=== PATIENT | male | born 1980 | race Two or more races ===

== ENCOUNTER 2025-01-10 23:49 | Emergency (ER) | payer MEDICAID, SELFPAY ==
--- NOTE | 2025-01-11 | EDNOTE_ITS ---
ED Wound/Laceration-RME/HPI General Chief Complaint: Wound Recheck / Suture Removal Stated Complaint: RE CHECK INCISION AT LEFT FLANK AREA Time Seen by Provider: 01/11/25 00:00 Arrival date/time: 01/10/25 23:49 RME / HPI RME / HPI narrative: This section includes all my notes and documentations, including HPI, PE, and ED course. Tim Headley MD HPI: 44yo male with a history of epidermoid cyst s/p resection 2 weeks ago at [place] presents to the ED for a chief complaint of wound check. Patient's family at bedside states the patient had his epidermoid cyst resected 2 weeks ago, along with another procedure at his left flank area (does not know what). He states he has been on antibiotics for the last three days, reporting he has since developed redness and pus-like drainage to the left flank area, so he came in for evaluation. He denies any fever, chills or any other associated symptoms. No other complaints reported. ROS: All negative except as documented in HPI. Physical Exam: General: Alert and oriented. No acute distress when remaining still. Eyes: Conjunctivae and lids clear. ENT: No nasal congestion. Neck: Supple. Heart: RRR. Lungs: No respiratory distress. Good air movement. No rhonchi, wheezing, rales. Abdomen: Soft and nontender. Legs: No clubbing, cyanosis, edema. Skin: Warm and dry. Apple-sized area of erythema and edema to the left flank area. Neuro: Alert and oriented X 3. I reviewed all diagnostic test results. My review of the CT report is no intra-abdominal acute findings. Blood tests unremarkable. At this point, diagnoses include cellulitis. Treatment here included Unasyn. Recommended a trial of outpatient treatment. Based on my best medical judgment, made decision no further evaluation or treatment indicated at this time. Patient understands and agrees to the discharge instructions customized and printed, see below. Discharge Instructions from Dr. Headley printed for you: 1. After evaluation, you have cellulitis (infection of the skin and soft tissues). There is no serious infection in the abdomen. 2. Take Augmentin to kill the germs causing the infection. 3. See a private doctor on 01/15/2025 for recheck and further care. Ask for help until you are completely better. 4. Seek immediate medical care with fever, spreading redness despite taking Augmentin for 24 hours, or with any concerns. Tim Headley MD Related Data Previous Rx's ?Medication ?Instructions ?Recorded amoxicillin 875 mg-potassium 1 tab PO BID #28 tabs clavulanate 125 mg tablet Allergies Allergy/AdvReac Type Severity Reaction Status Date / Time No Known Allergies Allergy Verified 01/10/25 23:51 Review of Systems Review of Systems Systems Reviewed: All systems reviewed, normal except as documented Past Medical History Social History SMOKING STATUS: Never smoker ED Exam Narrative Physical exam: As noted in HPI. Course Quality Measures none Orders Category Date Time Status CT Screening NOW Care 01/11/25 00:01 Active Saline [Insert IV] NOW Care 01/11/25 00:[address] abdomen pelvis w con Stat Exams 01/11/25 00:01 Taken CBC Stat Lab 01/11/25 00:23 Completed CMP [Comprehensive Metabolic Panel] Stat Lab 01/11/25 00:23 Completed CRP [C-Reactive Protein] Stat Lab 01/11/25 00:23 Completed ESR [Sed Rate (ESR)] Stat Lab 01/11/25 00:23 Completed Lactate (Lactic Acid) Stat Lab 01/11/25 00:23 Completed Magnesium Stat Lab 01/11/25 00:23 Completed Procalcitonin Stat Lab 01/11/25 00:23 Completed Ampicillin/Sulbac Inj [Unasyn Inj] 3 gm Med 01/11/25 00:38 Discontinued Sodium Chloride 0.9% (P) [Ns 0.9% (P)] 50 ml IV X1 Vital Signs Vital signs: Vital Signs Temperature 99.3 F 01/11/25 00:04 Pulse Rate 100 01/11/25 00:04 Respiratory Rate 18 01/11/25 00:04 Blood Pressure 130/82 01/11/25 00:04 Pulse Oximetry (%) 97 01/11/25 00:04 Oxygen Delivery Method Room Air 01/11/25 00:04 Wound / Laceration MDM Narrative MDM Narrative:: Scribe Attestation: 01/11/25 - Melva Eli am scribing for and in the presence of Dr. Headley. Patient data External records reviewed:: [facility] previous records (Per chart review, patient has no relevant previous ED visits or admissions to this facility.) Clinical information provided by:: patient Social determinants that could affect healthcare access:: none Patient has the following chronic illnesses:: epidermoid cyst s/p resection 2 weeks ago How is presenting disease/condition affected by chronic disease/condition?: uneffected by Evaluation data The following diagnostics were reviewed and interpreted by me:: lab results and radiology exam(s) Lab and/or radiology exams considered but not ordered:: none Interpretation Summary: Abdominal wall cellulitis Medications / Prescriptions Medications or Prescriptions considered but not ordered:: none Medication administrations:: Medication Administration History Discontinued Medications Ampicillin Sodium/Sulbactam (Sodium 3 gm/ Sodium Chloride) 50 mls @ 100 mls/hr IV X1 ONE Stop: 01/11/25 00:39 Last Infusion: 01/11/25 01:35 Dose: Infused Documented By: Admin: 01/11/25 01:04 Dose: 100 mls/hr Documented By: ZARI Unasyn Consultations Consultation(s) initiated? (list below): No Diagnosis Wound Differential Diagnosis: laceration, abscess, abrasion, avulsion of skin and other (Cellulitis) Most likely diagnosis given after review of the tests above:: Abdominal wall cellulitis Admission Indicated Admission indicated?: not indicated Explain why admission is indicated or not indicated:: No criteria for admission. Admission Request Was there a request for admission?: No Disposition Plan Disposition Plan: Discharge Discharge Attestation Discharge Attestation: The patient and all family members were given an opportunity to ask questions and understood the discharge instructions. Discharge instructions specifically effects, indications for sooner follow up or return to the emergency department, and the expected course of current diagnosis. Patient condition: Stable Discharge Plan Plan Patient Disposition: HOME (Self Care) Prescriptions/Referrals Prescriptions/Med Rec: New amoxicillin-pot clavulanate 875-125 mg tablet 1 tab PO BID Qty: 28 0RF Referrals: Randa Carbone NP [Primary Care Provider] - In 1 week Problem List Clinical Impression: Cellulitis Patient/Caregiver Discharge Instructions Education Materials: ED Cellulitis Additional Instructions: Discharge Instructions from Dr. Headley printed for you: 1. After evaluation, you have cellulitis (infection of the skin and soft tissues). There is no serious infection in the abdomen. 2. Take Augmentin to kill the germs causing the infection. 3. See a private doctor on 01/15/2025 for recheck and further care. Ask for help until you are completely better. 4. Seek immediate medical care with fever, spreading redness despite taking Augmentin for 24 hours, or with any concerns. Instrucciones de fareed del Dr. Headley impresas para usted: 1. Despu?s de la evaluaci?n, tiene celulitis (infecci?n de la piel y los tejidos blandos). No hay jose infecci?n grave en el abdomen. 2. [place] Augmentin para matar los g?rmenes que causan la infecci?n. 3. Visite a un m?dico privado el 15/01/2025 para volver a examinarlo y recibir m?s atenci?n. Pida ayuda hasta que se mejore por completo. 4. Busque atenci?n m?dica inmediata si tiene fiebre, enrojecimiento que se extiende a pesar de martin Augmentin donna 24 horas o si tiene alguna i nquietud. Print Language: Moroccan Stand Alone Forms: [facility] Award Info., Patient Portal Info Letter
--- NOTE | 2025-01-11 00:01 | XR_ITS ---
Examination: CT abdomen with intravenous contrast CT pelvis with intravenous contrast 2-D coronal reconstructions 2-D sagittal reconstructions Date and time of exam:October 11, 2025 at 0135 hrs. Indications: Left flank pain and tenderness beginning 2 weeks ago, history surgery left leg. CTDI: vol (mGy) 6.06 DLP: (mGycm) 384. Technique: Multiple axial sections of the abdomen and pelvis have been obtained. 64 slice high-resolution scanner used. 3 mm axial sections have been obtained, post intravenous injection 60 cc [id number] 2-D sagittal, coronal reconstructions obtained. Low dose protocols were performed. One or more of the following dose reduction techniques were used; automated exposure control, adjustment of the mA and/or KV according to patient size, use of iterative reconstruction technique. Findings: No focal liver or splenic lesion Ventricular peritoneal shunt tube Spleen is not enlarged No pancreatic or adrenal mass No renal or ureteral calculi No bowel obstruction Normal appendix Intact urinary bladder Normal prostate Soft tissue density in the left lateral subcutaneous fatty tissue flank region, clinical correlation advised No abscess Osseous structures intact Impression: No intra-abdominal abscess, soft tissue density, perhaps contusion versus postoperative change in the subcutaneous fatty tissue left flank
[2025-01-11 00:04] VITALS: BP 130/82; PULSE 100; RESP 18; TEMP 37.4; O2SAT 97
[2025-01-11 00:43] LABS: Basophils # (Auto) 0.1 Thou/mm3 (0.0-0.2); Basophils % (Auto) 1 % (0-2.5); Eosinophils # (Auto) 0.2 Thou/mm3 (0.0-0.5); Eosinophils % (Auto) 2 % (0-10); Hematocrit 44.7 % (41.0-53.0); Hemoglobin 15.3 g/dL (13.5-16.0); Immature Granulocytes % (Auto) 1 % (0-0); Immature Granulocytes Auto 0.04 Thou/mm3 (0.00-0.00); Lymphocytes # (Auto) 1.8 Thou/mm3 (1.0-4.8); Lymphocytes % (Auto) 23 % (10-50); Mean Corpuscular HGB Conc 34.2 g/dl (31.0-37.0); Mean Corpuscular Hemoglobin 30.1 pg (25.0-35.0); Mean Corpuscular Volume 88 fL (80-100); Monocytes # (Auto) 0.8 Thou/mm3 (0.0-0.8); Monocytes % (Auto) 10 % (0-12); Neutrophils # (Auto) 4.9 Thou/mm3 (1.8-7.7); Neutrophils % (Auto) 64 % (37-80); Nucleated Red Blood Cell % 0 /100 WBC (0); Platelet Count 250 Thou/mm3 (140-440); RDW Standard Deviation 42.9 fL (35.1-43.9); Red Blood Count 5.09 Miln/mm3 (4.50-5.90); White Blood Count 7.8 Thou/mm3 (3.8-10.6)
[2025-01-11] MEDS: SODIUM CHLORIDE 0.9% IV (01:04)
[2025-01-11] MEDS: SULBAC IV (01:04)
[2025-01-11] MEDS: AMPICILLIN IV (01:04)
[2025-01-11 01:06] LABS: Alanine Aminotransferase 405 U/L (10-49); Albumin, Serum 4.2 gm/dL (3.5-5.0); Albumin/Globulin Ratio 1.4 (1.2-2.2); Alkaline Phosphatase 361 U/L (46-116); Anion Gap 2 (7-16); Aspartate Amino Transferase 72 U/L (0-34); BUN/Creatinine Ratio 19 Ratio (12-20); Bilirubin,Total 0.5 mg/dL (0.3-1.2); Blood Urea Nitrogen 19 mg/dL (9-23); C-Reactive Protein 1.6 mg/dL (0.0-0.9); Calcium 9.5 mg/dL (8.3-10.6); Calcium (Corrected) 9.5 mg/dL (8.5-10.1); Carbon Dioxide 26.2 mMol/L (20.0-31.0); Chloride 108 mMol/L (98-107); Glucose 104 mg/dL (74-106); Osmolality,Calculated 274 (275-295); Sodium 136 mMol/L (136-145); Total Protein 7.2 gm/dL (5.7-8.2); eGFR > 60 See Note
[2025-01-11 01:12] LABS: Procalcitonin 0.06 ng/ml (0.0-0.49)
[2025-01-11 01:17] LABS: Sed Rate (ESR) 32 mm/hr (0-15)
--- NOTE | 2025-01-11 02:31 | PRELIM_ITS ---
CT scan of the abdomen and pelvis with intravenous contrast (axial sections with sagittal and coronal reformats) January 11, 2025 at 0135 hours Clinical History: Left flank erythema, edema, calor, tenderness. Comparison: No prior study is available for comparison. Findings: The lung bases are clear. The liver, gallbladder, pancreas, spleen, kidneys and adrenals are unremarkable. No evidence of bowel obstruction. No evidence of appendicitis. There is no mesenteric or retroperitoneal adenopathy. The urinary bladder is unremarkable. There is no free fluid or free air. The osseous structures are unremarkable. Distal tip of the [employer] shunt in the right lower quadrant. Mild left lateral abdominal wall subcutaneous fat edema, possibly ecchymosis. Impression: No evidence of acute intra-abdominal or pelvic pathology. Mild left lateral abdominal wall subcutaneous fat edema, possibly ecchymosis. Report Electronically Signed By: Candelario Dominguez 01/11/2025 2:30:41 AM [EST]
[2025-01-11 03:02] VITALS: PULSE 72; RESP 18; TEMP 37.1; O2SAT 99
== END 2025-01-11 03:14 | disposition home or self-care (01) ==
PROVIDERS: Emergency Provider Emergency Medicine; PCP Nurse Practitioner Family
DX: L03.311 Cellulitis of abdominal wall (principal)
CPT/HCPCS: 36415; 74177; 80053; 83605; 83735; 84145; 85025; 85652; 86140; 96365; 99285; A4649; J0295; J7050; Q9967